=== PATIENT | female | born 1990 | race Caucasian/White ===

== ENCOUNTER 2019-05-02 16:43 | Emergency (ER) | payer OTHER, SELFPAY ==
[2019-05-02 16:43] VITALS: BP 128/75; PULSE 95; RESP 16; TEMP 36.4; O2SAT 99; BMI 21.7
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
[2019-05-02 18:39] VITALS: BP 102/69; PULSE 78; RESP 16; O2SAT 100
== END 2019-05-02 18:40 | disposition home or self-care (01) ==
LOC: ED 18:23
PROVIDERS: Emergency Provider Emergency Medicine; Family Provider Family Medicine; PCP Family Medicine
DX: S09.90XA Unspecified injury of head, initial encounter (principal); S16.1XXA Strain of muscle, fascia and tendon at neck level, initial encounter; V43.52XA Car driver injured in collision with other type car in traffic accident, initial encounter; Y92.410 Unspecified street and highway as the place of occurrence of the external cause; K50.90 Crohn's disease, unspecified, without complications; I34.1 Nonrheumatic mitral (valve) prolapse; L30.9 Dermatitis, unspecified
CPT/HCPCS: 72040; 99282